=== PATIENT | male | born 1985 | race African-American/Black ===

== ENCOUNTER 2023-05-26 04:32 | Day surgery (SDC) | payer OTHER ==
[2023-05-20 16:17] VITALS: BMI 28.5
[2023-05-26] MEDS: BUPIVACAINE HCL/PF 0.5% (5 MG/ML) 30 ML VIAL IJ ONE
[2023-05-26 11:01] LABS: BASO % 0.4 % (0-2.0); EOS % 1.8 % (0-4.5); HEMATOCRIT 42.3 % (35.4-49); HEMOGLOBIN 14.5 GM/dL (11.7-16.9); MCH 31.7 pg (25.7-33.7); MCHC 34.3 g/dl (32.0-35.9); MEAN CELL VOLUME 92.5 fl (80-96); NEUT % 69.8 % (42.8-82.8); PLATELET COUNT 284 10^3/uL (134-434); RBC 4.58 M/mm3 (4.00-5.60); RDW 14.1 % (11.9-15.9); WHITE BLOOD COUNT 12.8 K/mm3 (4.0-10.0)
[2023-05-26 11:11] LABS: INR 1.17 (0.83-1.09); PROTHROMBIN TIME (PATIENT) 13.5 SEC (9.7-13.0)
[2023-05-26] MEDS ORDERED: LIDOCAINE HCL 1%, 10 MG/ML (20ML VIAL) ONE (12:44)
[2023-05-26] MEDS ORDERED: PROPOFOL 20 ML ONE (12:54)
[2023-05-26] MEDS ORDERED: MIDAZOLAM HCL 2 MG/2 ML SINGLE DOSE VIAL ONE (12:54)
[2023-05-26] MEDS ORDERED: LIDOCAINE HCL/PF 2% SDV 5ML VIAL ONE (12:54)
[2023-05-26] MEDS ORDERED: DEXAMETHASONE SOD PHOSPHATE 4 MG/1 ML VIAL ONE (13:24)
[2023-05-26] MEDS ORDERED: ceFAZolin SODIUM 1 GM VIAL ONE (13:24)
[2023-05-26] MEDS: ceFAZolin SODIUM 1 GM VIAL IVPB ONE (13:25)
[2023-05-26] MEDS ORDERED: ONDANSETRON 4 MG/2 ML VIAL ONE (13:26)
[2023-05-26] MEDS ORDERED: KETOROLAC TROMETHAMINE 30 MG/1 ML VIAL ONE (13:26)
[2023-05-26] MEDS: LIDOCAINE HCL 1%, 10 MG/ML (50 mL VIAL) INF ONE ×2 (13:32)
[2023-05-26] MEDS: BUPIVACAINE HCL/PF 0.5% (5MG/ML) 10 ML VIAL IJ ONE (13:32)
[2023-05-26] MEDS ORDERED: PROMETHAZINE HCL 25 MG/1 ML VIAL IVPB PRN (14:07)
[2023-05-26] MEDS ORDERED: oxyCODONE HCL 5 MG TABLET PO PRN ×2 (14:07)
[2023-05-26] MEDS ORDERED: ONDANSETRON 4 MG/2 ML VIAL IVPUSH PRN (14:07)
[2023-05-26] MEDS ORDERED: LACTATED RINGERS SOLUTION 1,000 ML IV SCH (14:15)
[2023-05-26] MEDS: ACETAMINOPHEN 1000 MG/100 ML BAG IVPB ONE (14:40)
[2023-05-26] MEDS ORDERED: ACETAMINOPHEN INJECTION 100 ML IVPB ONE (14:48)
[2023-05-26 15:08] VITALS: RESP 20
[2023-05-26 16:09] VITALS: BP 108/70; PULSE 68; TEMP 97
== END 2023-05-26 15:55 | disposition home or self-care (01) ==
LOC: JASU-SURG 04:32
PROVIDERS: ATTEND Surgery
PROC: 0JB80ZZ Excision of Abdomen Subcutaneous Tissue and Fascia, Open Approach (ICD-10-PCS; principal; 2023-05-26 12:00)
DX: L72.3 Sebaceous cyst (principal)
CPT/HCPCS: 36415; 85025; 85610; 94760; J0131